=== PATIENT | female | born 1995 | race African-American/Black ===

== ENCOUNTER 2019-06-07 18:05 | Emergency (ER) | payer OTHER ==
[~2019-06-07] VITALS: Ht 152.4 cm; Wt 48.1 kg
[2019-06-07 18:10] VITALS: BP 126/75
[2019-06-07] MEDS ORDERED: ACETAMINOPHEN 500 MG TABLET PO ONE (18:30)
[2019-06-07] MEDS ORDERED: IBUPROFEN 600 MG TABLET. PO ONE (18:30)
[2019-06-07 19:24] LABS: INFLUENZA A PATIENT NEGATIVE (NEGATIVE); INFLUENZA B PATIENT POSITIVE (NEGATIVE)
[2019-06-07] MEDS ORDERED: OSEL75CA PO (19:38)
[2019-06-07 19:39] LABS: BACTERIA,URINE FEW /HPF (0-FEW); BILIRUBIN,URINE NEG (NEG); CLARITY,URINE CLOUDY; COLOR,URINE AMBER; GLUCOSE,URINE NEG (NEG); NITRITE,URINE NEG (NEG); RBC,URINE 0 /HPF (0-2); SQUAMOUS EPITHELIAL CELL,UR FEW /LPF
--- NOTE | 2019-06-07 19:41 | PHYS DOC ---
Past History Past Medical History: No Pertinent History Past Surgical History: No Surgical History Alcohol Use: Occasionally Drug Use: None Adult General Chief Complaint Chief Complaint: HEADACHE HPI HPI Patient is a 23 you female presenting with bodyaches nausea subjective fever just not feeling well coughing a little bit as well. nauseous a couple days ago but then felt fine yesterday and came on suddenly today. Review of Systems Review of Systems Constitutional: Cardiovascular: No additional information not addressed in HPI [] GI: Denies abdominal pain, nausea, vomiting, bloody stools or diarrhea [] : Denies dysuria or hematuria [] Musculoskeletal: Denies back pain or joint pain [] Integument: Denies rash or skin lesions [] Neurologic: All other systems were reviewed and found to be within normal limits, except as documented in this note. Current Medications Current Medications Current Medications Medications (Trade) Dose Ordered Sig/Alistair Start Time Stop Time Status Last Admin Dose Admin Acetaminophen (Tylenol) 1,000 mg 1X ONCE 06/07/19 18:30 06/07/19 18:31 DC 06/07/19 18:41 1,000 MG Ibuprofen (Motrin) 600 mg 1X ONCE 06/07/19 18:30 06/07/19 18:31 DC 06/07/19 18:41 600 MG Allergies Allergies Allergies Coded Allergies Type Severity Reaction Last Updated Verified No Known Drug Allergies 06/07/19 No Physical Exam Physical Exam Constitutional: Well developed, well nourished, no acute distress, non-toxic appearance. [] HENT: Normocephalic, atraumatic, bilateral external ears normal, oropharynx moist, no oral exudates, nose normal. [] Eyes: PERRLA, EOMI, conjunctiva normal, no discharge. [] Neck: Normal range of motion, no tenderness, supple, no stridor. [] Cardiovascular:Heart rate regular rhythm, no murmur [] Lungs & Thorax: Bilateral breath sounds clear to auscultation [] Abdomen: Bowel sounds normal, soft, no tenderness, no masses, no pulsatile masses. [] Skin: Warm, dry, no erythema, no rash. [] Back: No tenderness, no CVA tenderness. [] Extremities: No tenderness, no cyanosis, no clubbing, ROM intact, no edema. [] Neurologic: Alert and oriented X 3, normal motor function, normal sensory function, no focal deficits noted. [] Psychologic: Affect normal, judgement normal, mood normal. [] Current Patient Data Vital Signs Vital Signs Date Time Temp Pulse Resp B/P (MAP) Pulse Ox O2 Delivery O2 Flow Rate FiO2 06/07/19 18:10 99.9 109 24 99 Room Air Lab Results Laboratory Tests Test 06/07/19 18:20 06/07/19 18:31 06/07/19 19:15 Influenza Type A (Rapid) Negative (NEGATIVE) Influenza Type B (Rapid) Positive (NEGATIVE) Group A Streptococcus Rapid Negative (NEGATIVE) POC Urine HCG, Qualitative hcg negative (Negative) EKG EKG [] Radiology/Procedures Radiology/Procedures [] Impressions: cxr negative. Course & Med Decision Making Course & Med Decision Making Pertinent Labs and Imaging studies reviewed. (See chart for details) []23-year-old female presenting with influenza. Chest x-ray and urinalysis were negative for bacterial infection patient was reassured some nonsense so she may benefit from Tamiflu this was prescribed and she was given good return precautions and discharged in stable condition. Dragon Disclaimer Dragon Disclaimer This electronic medical record was generated, in whole or in part, using a voice recognition dictation system. Departure Departure: Impression: Primary Impression: Influenza Disposition: HOME, SELF-CARE Condition: STABLE Patient Instructions: Influenza, Adult Scripts Oseltamivir Phosphate (TAMIFLU) 75 Mg Capsule 1 CAP PO BID for flu, #10 CAP Prov: CELINE FIGUEREDO MD 06/07/19 CELINE FIGUEREDO MD Jun 07, 2019 19:41
--- NOTE | 2019-06-07 19:52 | RAD ---
AP chest. HISTORY: Fever AP view was taken of the chest. Lungs are clear. Heart is normal in size. There is no pleural effusion. IMPRESSION: 1. No acute chest disease. Electronically signed by: Carlos Pedro MD (06/07/2019 7:49 PM) [facility]
== END 2019-06-07 20:04 | disposition home or self-care (01) ==
LOC: ER 18:05
DX: J10.1 Influenza due to other identified influenza virus with other respiratory manifestations (principal)
CPT/HCPCS: 71045; 81001; 81025; 87070; 87804; 87880; 99285-25

== ENCOUNTER 2020-06-18 03:17 | Emergency (ER) | payer OTHER ==
[~2020-06-18] VITALS: Ht 154.9 cm; Wt 50.0 kg
[~2020-06-18 03:17] MED LIST: OSEL75CA PO
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
[2020-06-18 03:37] VITALS: BP 115/70
[2020-06-18] MEDS ORDERED: BACI28.34 TP (03:55)
[2020-06-18] MEDS ORDERED: LIDOCAINE 2%/EPI 1:100,000 20 ML VIAL. IJ ONE (04:00)
[2020-06-18] MEDS ORDERED: LIDOCAINE 2% 20 ML VIAL. IJ ONE (04:00)
[2020-06-18] MEDS ORDERED: BACITRACIN ZINC TOPICAL OINT PACKET. TP ONE (04:00)
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
== END 2020-06-18 04:37 | disposition home or self-care (01) ==
LOC: ER 03:17
DX: S01.112A Laceration without foreign body of left eyelid and periocular area, initial encounter (principal); W22.8XXA Striking against or struck by other objects, initial encounter; Y93.89 Activity, other specified; Y92.89 Other specified places as the place of occurrence of the external cause; Y99.8 Other external cause status
CPT/HCPCS: 12013; 70450; 72125; 99285; J2001